=== PATIENT | female | born 2000 | race Two or more races ===

== ENCOUNTER 2018-03-24 13:27 | Emergency (ER) | payer SELFPAY ==
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
[2018-03-24 14:14] LABS: PLATELET COUNT, AUTOMATED 215 K/uL (150-450)
[2018-03-24] MEDS ORDERED: AZITHROMYCIN 250 MG TAB PO ONE (17:10)
[2018-03-24] MEDS ORDERED: cefTRIAXone 250 MG VIAL IM ONE (17:10)
[2018-03-24] MEDS ORDERED: METRONIDAZOLE 500 MG TABLET PO ONE (17:10)
[2018-03-24 19:08] VITALS: BP 112/71
== END 2018-03-24 19:10 ==
LOC: ER 14:32
DX: R45.851 Suicidal ideations (principal)
CPT/HCPCS: 36415; 80305; 80320; 80329; 81001; 81025; 83735; 84443; 85025; 96372; 99284; J0696; Q0144; 82040; 82247; 82310; 82374; 82435; 82565; 82947; 84075; 84132; 84155; 84295; 84450; 84460; 84520

== ENCOUNTER 2018-03-24 18:24 | Inpatient (IN) | payer SELFPAY ==
[~2018-03-24] VITALS: Ht 149.9 cm; Wt 83.0 kg
[~2018-03-24 18:24] MED LIST changes: -DOCU-416 PO; +MAG HYD/AL HYD/SIMETH 30ML UDC PO PRN; -MULT-859 PO; -SERT-1 PO; -TRAZ150T8 PO
[2018-03-24 19:19] VITALS: BP 121/73
[2018-03-24] MEDS ORDERED: BISACODYL 5 MG TABEC PO ONE (20:45)
[2018-03-24] MEDS ORDERED: OLANZapine 5 MG TAB PO PRN (20:45)
[2018-03-24] MEDS: traZODone HCL 50 MG TAB PO SCH (21:42)
[2018-03-24] MEDS: DOCUSATE SODIUM 100 MG CAP PO SCH (21:43)
[2018-03-25 06:05] VITALS: BP 116/69
[2018-03-25] MEDS: DOCUSATE SODIUM 100 MG CAP PO SCH ×2 (08:16→20:58)
[2018-03-25] MEDS: MULTIVITAMINS PO SCH (08:16)
[2018-03-25] MEDS: SERTRALINE HCL 50 MG TAB PO SCH (08:16)
[2018-03-25] MEDS ORDERED: INFLUENZA VIRUS VAC 0.5ML SYR IM ONLY ONE (13:10)
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
[2018-03-25] MEDS: traZODone HCL 50 MG TAB PO SCH (20:58)
[2018-03-26] MEDS: DOCUSATE SODIUM 100 MG CAP PO SCH ×2 (08:24→21:49)
[2018-03-26] MEDS: MULTIVITAMINS PO SCH (08:24)
[2018-03-26] MEDS: SERTRALINE HCL 50 MG TAB PO SCH (08:24)
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
[2018-03-26 13:00] VITALS: BP 108/54
[2018-03-26] MEDS: traZODone HCL 50 MG TAB PO SCH (21:49)
[2018-03-27] MEDS: DOCUSATE SODIUM 100 MG CAP PO SCH ×2 (08:28→20:37)
[2018-03-27] MEDS: SERTRALINE HCL 50 MG TAB PO SCH (08:28)
[2018-03-27] MEDS: MULTIVITAMINS PO SCH (08:28)
[2018-03-27 12:00] VITALS: BP 108/68
--- NOTE | 2018-03-27 16:52 | BHS Progress Note ---
[facility] - Subjective Progress Notes Subjective Henrique is feeling well today. She is anticipating returning to [place] and tells us that she is in better spirits. She is "just a tiny bit" depressed. Anxiety is "a three" on a scale of one to ten. Anger is a zero. No urge for self-injury but she does admit that she feels bad when she eats. She has a history of an eating disorder and used to purge. She has anxiety surrounding her weight and eating. Suicidal Ideation: None Homicidal Ideation: None [facility] - Objective Physical Exam Muscle Strength and Tone: WNL Gait and Station: Steady [facility] Medications Reviewed: Side Effects Allergies Reviewed: Yes Mental Status Exam General Appearance: Casual, Well Groomed, Good Eye Contact, Cooperative, Polite, Good Interaction; No Tearful, No Psychomotor Agitation, No Psychomotor Retardation, No Bizarre Mannerisms, No Tics Speech: Clear, Spontaneous, Normal Rate, Normal Rhythm, Normal Volume, Normal Tone Mood: Euthymic, Other (just slightly anxious. See "subjective") Affect: Full and Appropriate, Calm; No Tearful, No Anxious, No Agitated Thought Process: Goal Directed (wants to return to [place]); No Loose Associations, No Flight of Ideas Thought Content: No Suicidal Ideation (resolved, no para-suicdal behaviors on the unit. ), No Homicidal Ideation, No Delusions, No Auditory Halllucinations, No Visual Hallucinations, No Thought Broadcasting, No Ideas of Reference, No Obsessions, No Compulsions Sensorium: Clear Cognition: Alert & Oriented-Person, Alert & Oriented-Place, Alert & Oriented- Time; No Nzotu-[id number]-Yzjxtrswb (partially) Memory: Immediate, Recent, Remote Intelligence: Below Average [facility] Assessment and Plan [id number] Encounter Date: Mar 27, 2018 [id number] Encounter Time: 11:00 [facility] Plan: Necessary Precautions, Individual/Group Therapy, Admin/Titrate Meds, Educate Patient Tobacco Medications: Not Appropriate Condition Multpiple Antipsychotics Used: No Problems: (1) Eating disorder Status: Chronic Condition Much improved. RYAN PORTER DO Mar 27, 2018 16:52
[2018-03-27] MEDS: traZODone HCL 50 MG TAB PO SCH (20:38)
[2018-03-28] MEDS: DOCUSATE SODIUM 100 MG CAP PO SCH ×2 (08:34→21:24)
[2018-03-28] MEDS: MULTIVITAMINS PO SCH (08:35)
[2018-03-28] MEDS: SERTRALINE HCL 50 MG TAB PO SCH (08:35)
[2018-03-28 12:40] VITALS: BP 110/68
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
[2018-03-28] MEDS: traZODone HCL 50 MG TAB PO SCH (21:29)
[2018-03-29] MEDS ORDERED: traZODone HCL 50 MG TAB PO SCH
[2018-03-29] MEDS ORDERED: DOCUSATE SODIUM 100 MG CAP PO SCH
[2018-03-29] MEDS ORDERED: SERTRALINE HCL 50 MG TAB PO SCH
[2018-03-29 06:08] VITALS: BP 93/64
[2018-03-29] MEDS: SERTRALINE HCL 50 MG TAB PO SCH (08:25)
[2018-03-29] MEDS: MULTIVITAMINS PO SCH (08:25)
[2018-03-29] MEDS: DOCUSATE SODIUM 100 MG CAP PO SCH (08:25)
[2018-03-29] MEDS ORDERED: DOCU-416 PO (09:24)
[2018-03-29] MEDS ORDERED: TRAZ150T8 PO (09:25)
[2018-03-29] MEDS ORDERED: SERT-1 PO (09:25)
[2018-03-29] MEDS ORDERED: MULT-859 PO (09:25)
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
== END 2018-03-29 13:16 | disposition home or self-care (01) | DRG 883 ==
LOC: BHS 18:24
PROVIDERS: ADMIT Psychiatry & Neurology Psychiatry; ATTEND Psychiatry & Neurology Psychiatry
DX: F60.3 Borderline personality disorder (principal); R45.851 Suicidal ideations; T76.21XA Adult sexual abuse, suspected, initial encounter; F32.9 Major depressive disorder, single episode, unspecified; F43.12 Post-traumatic stress disorder, chronic; R41.83 Borderline intellectual functioning; F50.9 Eating disorder, unspecified; S61.512A Laceration without foreign body of left wrist, initial encounter; N92.1 Excessive and frequent menstruation with irregular cycle; Z23 Encounter for immunization; Z91.5 Personal history of self-harm; Z81.8 Family history of other mental and behavioral disorders; Z59.0 Homelessness; Z88.8 Allergy status to other drugs, medicaments and biological substances; Z91.013 Allergy to seafood; Z91.018 Allergy to other foods; Z62.810 Personal history of physical and sexual abuse in childhood; Z62.812 Personal history of neglect in childhood
CPT/HCPCS: 36415; 84703; 90471; 90674

== ENCOUNTER → 2018-03-24 | Outpatient (CLI) | payer SELFPAY ==
[~2018-03-24] MED LIST: DOCU-416 PO; MULT-859 PO; SERT-1 PO; TRAZ150T8 PO
== END ==
LOC: AMB 13:14
PROVIDERS: ATTEND Nurse Practitioner
DX: S61.512A Laceration without foreign body of left wrist, initial encounter (principal); T14.91XA Suicide attempt, initial encounter; X78.9XXA Intentional self-harm by unspecified sharp object, initial encounter
CPT/HCPCS: A0425; A0429